=== PATIENT | female | born 1950 | race Caucasian/White ===

== ENCOUNTER 2018-10-30 11:46 | Emergency (ER) | payer BC, MEDICARE ==
[2018-10-30] MEDS ORDERED: Sodium Chloride 0.9% 10 ML Syringe FLUSH PRN (12:06)
[2018-10-30] MEDS ORDERED: Ondansetron 4 MG/2 ML SDV IVPUSH ONE (12:06)
--- NOTE | 2018-10-30 13:08 | EDM.PDOC ---
ED HPI GENERAL MEDICAL PROBLEM - General Chief Complaint: Head Injury Stated Complaint: HEAD INJURY Time Seen by Provider: 10/30/18 11:59 Source of Information: Reports: Patient, RN Notes Reviewed - History of Present Illness INITIAL COMMENTS - FREE TEXT/NARRATIVE: 68-year-old lady fell striking the back of her head hard against the pavement or cement driveway. She slipped on ice falling backwards. There was no LOC. She may have been dazed briefly. She does have severe headache, feels sleepy. Denies neck or back discomfort. There's been no nausea or vomiting. Her headache is worse with motion. She denies injury to her upper or lower extremities. No chest pain or difficulty breathing. Head Pain Score (Numeric/FACES): 7 - Related Data Allergies Allergy/AdvReac Type Severity Reaction Status Date / Time unknown depression med Allergy Hives Uncoded 10/30/18 11:53 Home Meds: Home Meds Aspirin [Ecotrin] 81 mg PO DAILY 10/30/18 [History] FLUoxetine HCl [Fluoxetine HCl] 20 mg PO DAILY 10/30/18 [History] Lisinopril 5 mg PO DAILY 10/30/18 [History] atorvaSTATin Calcium [Atorvastatin Calcium] 10 mg PO DAILY 10/30/18 [History] Past Medical History Other HEENT History: wears glasses Cardiovascular History: Reports: High Cholesterol, Hypertension Genitourinary History: Reports: Urinary Incontinence 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: - Past Surgical History HEENT Surgical History: Reports: Tonsillectomy GI Surgical History: Reports: Cholecystectomy Social & Family History - Tobacco Use Smoking Status *Q: Never Smoker - Caffeine Use Caffeine Use: Reports: Coffee - Recreational Drug Use Recreational Drug Use: No ED ROS GENERAL - Review of Systems Review Of Systems: See Below Constitutional: Denies: Diaphoresis HEENT: Denies: Ear Discharge, Ear Pain Respiratory: Denies: Shortness of Breath Cardiovascular: Denies: Chest Pain GI/Abdominal: Denies: Abdominal Pain, Nausea, Vomiting Musculoskeletal: Denies: Neck Pain, Shoulder Pain, Arm Pain, Back Pain, Leg Pain Skin: Reports: No Symptoms Neurological: Reports: Dizziness, Headache ED EXAM, HEAD INJURY - Physical Exam Exam: See Below General Appearance: Alert, Moderate Distress Head: Other (There is an area of swelling right posterior scalp). No: Facial Tenderness (No bony tenderness of the head or face) Eyes: Bilateral Eye: PERRL Ears: Normal External Exam Nose: Normal Inspection Throat/Mouth: Normal Inspection Neck: Non-Tender, Full Range of Motion Respiratory: No Respiratory Distress, Lungs Clear, Normal Breath Sounds Cardiovascular: Regular Rate, Rhythm GI/Abdominal Exam: Soft, Non-Tender Back Exam: No: Paraspinal Tenderness, Vertebral Tenderness Extremities: Normal Inspection, Normal Range of Motion Neurologic: No Motor/Sensory Deficits, Oriented x 3 Skin: Normal Color, Warm/Dry Course - Vital Signs Text/Narrative:: Apparent abnormality other than the swelling of right posterior scalp. Last Recorded V/S: Last Vital Signs Temp 97.4 F 10/30/18 11:55 Pulse 63 10/30/18 11:55 Resp 14 10/30/18 11:55 BP 164/76 H 10/30/18 11:55 Pulse Ox 96 10/30/18 11:55 - Orders/Labs/Meds Orders: Active Orders 24 hr Category Date Time Status Peripheral IV Care [RC] . DIRECTED Care 10/30/18 12:06 Active Head wo Cont [CT] Stat Exams 10/30/18 12:05 Taken Peripheral IV Insertion Adult [OM.PC] Stat Oth 10/30/18 12:06 Ordered Meds: Medications Discontinued Medications Generic Name Dose Route Start Last Admin Trade Name Freq PRN Reason Stop Dose Admin Ondansetron HCl 4 mg 10/30/18 12:06 10/30/18 12:18 Zofran IVPUSH 10/30/18 12:07 4 mg ONETIME ONE Administration Sodium Chloride 10 ml 10/30/18 12:06 10/30/18 12:18 Saline Flush FLUSH 10 ml ASDIRECTED PRN Administration Keep Vein Open - Re-Assessments/Exams Free Text/Narrative Re-Assessment/Exam: 10/30/18 13:25 CT of head is negative for acute abnormality her headache is much better, her dizziness is much better, she does feel up to going home at this time, discharge instructions as documented. Departure - Departure Time of Disposition: 13:26 Disposition: Home, Self-Care 01 Condition: Fair Clinical Impression: Concussion injury of brain Fall Qualifiers: Encounter type: initial encounter Qualified Code(s): W19.XXXA - Unspecified fall, initial encounter Scalp contusion Qualifiers: Encounter type: initial encounter Qualified Code(s): S00.03XA - Contusion of scalp, initial encounter - Discharge Information Instructions: Concussion, Adult, [id number], Facial or Scalp Contusion Referrals: Gauri Spencer NP [Primary Care Provider] - Forms: ED Department Discharge, ED Return to Work/School Form Additional Instructions: Rest, ice packs and elevation as needed for swelling, Tylenol every 6-8 hours as needed for headache. No work recommended today and tomorrow, the treatment for concussion is rest and time, gradually increase activity as you feel up to that. Follow-up with your regular clinic provider if not much better within 2- 3 days as expected, return to ED as needed if symptoms worsening in any way. - My Orders Last 24 Hours: My Active Orders 10/30/18 12:05 Head wo Cont [CT] Stat 10/30/18 12:06 Peripheral IV Care [RC] . DIRECTED Peripheral IV Insertion Adult [OM.PC] Stat - Assessment/Plan Last 24 Hours: My Active Orders 10/30/18 12:05 Head wo Cont [CT] Stat 10/30/18 12:06 Peripheral IV Care [RC] . DIRECTED Peripheral IV Insertion Adult [OM.PC] Stat
--- NOTE | 2018-10-31 17:00 | CT ---
Head CT Technique: Multiple axial sections through the brain were obtained. Intravenous contrast was not utilized. Comparison: No prior intracranial imaging. Findings: Ventricles along with basal cisterns and sulci over the convexities appear within normal limits for the patient's age. Scalp hematoma and soft tissue swelling are noted within the posterior right scalp. No abnormal parenchymal densities are seen. No evidence of intracranial hemorrhage. No midline shift or mass effect is seen. Bone window settings show no acute calvarial abnormality. Mild mucosal thickening is noted within the ethmoid sinuses. Impression: 1. Scalp hematoma and soft tissue swelling posteriorly on the right side. 2. Minimal sinus findings which are felt to be incidental. 3. No acute intracranial abnormality is identified. Diagnostic code #2 I agree with preliminary report from [facility], finalized on 10/30/18, 1:49 PM Central Time
== END 2018-10-30 13:40 | disposition home or self-care (01) ==
LOC: JD.ED 11:46
DX: S06.0X0A Concussion without loss of consciousness, initial encounter (principal); S00.03XA Contusion of scalp, initial encounter; I10 Essential (primary) hypertension; E78.00 Pure hypercholesterolemia, unspecified; Z88.8 Allergy status to other drugs, medicaments and biological substances; Z79.82 Long term (current) use of aspirin; Z79.899 Other long term (current) drug therapy; W19.XXXA Unspecified fall, initial encounter
CPT/HCPCS: 70450; 96374; 99284; J2405

== ENCOUNTER 2019-04-16 14:06 | Emergency (ER) | payer BC, MEDICARE ==
--- NOTE | 2019-04-16 16:49 | EDM.PDOC ---
ED HPI GENERAL MEDICAL PROBLEM - General Chief Complaint: Respiratory Problem Stated Complaint: LEGS SWOLLEN DIFFICULTY BREATHING Time Seen by Provider: 04/16/19 14:16 Source of Information: Reports: Patient History Limitations: Reports: No Limitations - History of Present Illness INITIAL COMMENTS - FREE TEXT/NARRATIVE: The patient presents with a cough, shortness of breath and heaviness in her chest. This all started a few days ago. She just returned from [place]. She felt warm but has no measurable fever. She has no chills. She has no headache. She is short of breath with and without exertion. She has swelling in her legs. She has no history of DVT or PE. She has no pain in her legs. She has no lung problems such as asthma or COPD. She does not smoke. She does not need to sleep sitting up. She has no history of CHF and no history of heart problems. She has no abdominal pain, nausea or vomiting. Onset: Gradual Duration: Day(s): Location: Reports: Chest Quality: Reports: Other (Tightness) Severity: Mild Improves with: Reports: None Worsens with: Reports: None Associated Symptoms: Reports: Cough, Fever/Chills, Shortness of Breath. Denies : Chest Pain, Headaches, Nausea/Vomiting - Related Data Allergies Allergy/AdvReac Type Severity Reaction Status Date / Time escitalopram [From Lexapro] Allergy Hives Verified 04/16/19 14:19 Home Meds: Home Meds FLUoxetine HCl [Fluoxetine HCl] 20 mg PO DAILY 10/30/18 [History] Lisinopril 5 mg PO DAILY 10/30/18 [History] atorvaSTATin Calcium [Atorvastatin Calcium] 10 mg PO DAILY 10/30/18 [History] Azithromycin [Zithromax] 250 mg PO DAILY #6 tab 04/16/19 [Rx] Furosemide [Lasix] 20 mg PO DAILY #7 tab 04/16/19 [Rx] Past Medical History Other HEENT History: wears glasses Cardiovascular History: Reports: High Cholesterol, Hypertension Genitourinary History: Reports: Urinary Incontinence 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: - Past Surgical History HEENT Surgical History: Reports: Tonsillectomy GI Surgical History: Reports: Cholecystectomy Social & Family History - Tobacco Use Smoking Status *Q: Never Smoker - Caffeine Use Caffeine Use: Reports: Coffee ED ROS GENERAL - Review of Systems Review Of Systems: See Below Constitutional: Reports: Fever HEENT: Reports: No Symptoms Respiratory: Reports: Shortness of Breath, Cough Cardiovascular: Reports: Chest Pain (Tightness) Endocrine: Reports: No Symptoms GI/Abdominal: Reports: No Symptoms : Reports: No Symptoms Musculoskeletal: Reports: No Symptoms Skin: Reports: No Symptoms ED EXAM, GENERAL - Physical Exam Exam: See Below Exam Limited By: No Limitations General Appearance: Alert, No Apparent Distress Ears: Normal External Exam Nose: Normal Inspection Head: Atraumatic, Normocephalic Neck: Normal Inspection Respiratory/Chest: No Respiratory Distress, Lungs Clear, Normal Breath Sounds Cardiovascular: Regular Rate, Rhythm, No Murmur, Other (Bilateral lower leg edema) GI/Abdominal: Soft, Non-Tender, No Organomegaly, No Mass Back Exam: Normal Inspection Extremities: Other (Bilateral lower leg edeam) Neurological: Alert, Oriented, No Motor/Sensory Deficits EKG INTERPRETATION EKG Date: 04/16/19 Time: 14:43 Rhythm: Other (sinus bradycardia) Rate (Beats/Min): 56 [place]: Normal P-Wave: Present QRS: Normal ST-T: Other (flipped T wave in V1) QT: Normal Course - Vital Signs Last Recorded V/S: Last Vital Signs Temp 98.0 F 04/16/19 14:20 Pulse 57 L 04/16/19 14:20 Resp 18 04/16/19 14:20 BP 152/73 H 04/16/19 14:20 Pulse Ox 94 L 04/16/19 14:20 - Orders/Labs/Meds Orders: Active Orders 24 hr Category Date Time Status Cardiac Monitoring [RC] . DIRECTED Care 04/16/19 14:39 Active EKG Documentation Completion [RC] STAT Care 04/16/19 14:39 Active Ang Chest [CT] Stat Exams 04/16/19 15:59 Taken Chest 2V [CR] Stat Exams 04/16/19 14:39 Taken Labs: Laboratory Tests 04/16/19 04/16/19 04/16/19 Range/Units 14:30 14:30 14:30 WBC 4.79 (3.98-10.04) K/mm3 RBC 3.71 L (3.98-5.22) M/mm3 Hgb 11.2 D (11.2-15.7) gm/L Hct 35.0 (34.1-44.9) % MCV 94.3 (79.4-94.8) fl MCH 30.2 (25.6-32.2) pg MCHC 32.0 L (32.2-35.5) g/dl RDW Std Deviation 47.5 H (36.4-46.3) fL Plt Count 243 (182-369) K/mm3 MPV 10.0 (9.4-12.3) fl Neut % (Auto) 54.9 (34.0-71.1) % Lymph % (Auto) 23.4 (19.3-51.7) % [place] % (Auto) 19.2 H (4.7-12.5) % Eos % (Auto) 1.9 (0.7-5.8) Baso % (Auto) 0.4 (0.1-1.2) % Neut # (Auto) 2.63 (1.56-6.13) K/mm3 Lymph # (Auto) 1.12 L (1.18-3.74) K/mm3 [place] # (Auto) 0.92 H (0.24-0.36) K/mm3 Eos # (Auto) 0.09 (0.04-0.36) K/mm3 Baso # (Auto) 0.02 (0.01-0.08) K/mm3 Manual Slide Review Normal smear D-Dimer, Quantitative 0.79 H (0.19-0.50) mg/L Sodium 136 (136-145) mEq/L Potassium 3.7 (3.5-5.1) mEq/L Chloride 104 (98-107) mEq/L Carbon Dioxide 24 (21-32) mEq/L Anion Gap 11.7 (5-15) BUN 13 (7-18) mg/dL Creatinine 0.8 (0.55-1.02) mg/dL Est Cr Clr Drug Dosing 58.93 mL/min Estimated GFR (MDRD) > 60 (>60) mL/min BUN/Creatinine Ratio 16.3 (14-18) Glucose 98 (80-115) mg/dL Calcium 8.9 (8.5-10.1) mg/dL Total Bilirubin 0.3 (0.2-1.0) mg/dL AST 48 H (15-37) U/L ALT 57 (14-59) U/L Alkaline Phosphatase 69 (46-116) U/L Troponin I < 0.017 (0.00-0.056) ng/mL NT-Pro-B Natriuret Pep (0-125) pg/mL Total Protein 8.3 H (6.4-8.2) g/dl Albumin 3.0 L (3.4-5.0) g/dl Globulin 5.3 gm/dL Albumin/Globulin Ratio 0.6 L (1-2) 04/16/19 Range/Units 14:30 WBC (3.98-10.04) K/mm3 RBC (3.98-5.22) M/mm3 Hgb (11.2-15.7) gm/L Hct (34.1-44.9) % MCV (79.4-94.8) fl MCH (25.6-32.2) pg MCHC (32.2-35.5) g/dl RDW Std Deviation (36.4-46.3) fL Plt Count (182-369) K/mm3 MPV (9.4-12.3) fl Neut % (Auto) (34.0-71.1) % Lymph % (Auto) (19.3-51.7) % [place] % (Auto) (4.7-12.5) % Eos % (Auto) (0.7-5.8) Baso % (Auto) (0.1-1.2) % Neut # (Auto) (1.56-6.13) K/mm3 Lymph # (Auto) (1.18-3.74) K/mm3 [place] # (Auto) (0.24-0.36) K/mm3 Eos # (Auto) (0.04-0.36) K/mm3 Baso # (Auto) (0.01-0.08) K/mm3 Manual Slide Review D-Dimer, Quantitative (0.19-0.50) mg/L Sodium (136-145) mEq/L Potassium (3.5-5.1) mEq/L Chloride (98-107) mEq/L Carbon Dioxide (21-32) mEq/L Anion Gap (5-15) BUN (7-18) mg/dL Creatinine (0.55-1.02) mg/dL Est Cr Clr Drug Dosing mL/min Estimated GFR (MDRD) (>60) mL/min BUN/Creatinine Ratio (14-18) Glucose (80-115) mg/dL Calcium (8.5-10.1) mg/dL Total Bilirubin (0.2-1.0) mg/dL AST (15-37) U/L ALT (14-59) U/L Alkaline Phosphatase (46-116) U/L Troponin I (0.00-0.056) ng/mL NT-Pro-B Natriuret Pep 286 H (0-125) pg/mL Total Protein (6.4-8.2) g/dl Albumin (3.4-5.0) g/dl Globulin gm/dL Albumin/Globulin Ratio (1-2) - Re-Assessments/Exams Free Text/Narrative Re-Assessment/Exam: 04/16/19 16:51 I ordered an IV saline lock, EKG, CXR and labs. Her EKG shows a sinus bradycardia with a flipped T wave in V1. Her CXR shows no infiltrates. 04/16/19 16:53 Her CBC was negative. Her AST was slightly elevated at 48. Her troponin was negative. Her BNP was slightly elevated at 286. Her D-dimer was elevated at 0.79. I ordered a CT angio of her chest. 04/16/19 17:[address] of her chest showed no PE but pattern of cardiogenic interstitial pulmonary edema. I will get her on lasix for a week and get an echocardiogram. I will also get her on a z-garry. Departure - Departure Time of Disposition: 17:15 Disposition: Home, Self-Care 01 Condition: Good Clinical Impression: Bronchitis Pulmonary edema Qualifiers: Chronicity: acute Qualified Code(s): J81.0 - Acute pulmonary edema - Discharge Information *PRESCRIPTION DRUG MONITORING PROGRAM REVIEWED*: Not Applicable *COPY OF PRESCRIPTION DRUG MONITORING REPORT IN PATIENT JULIETH: Not Applicable Prescriptions: Azithromycin [Zithromax] 250 mg PO DAILY #6 tab Furosemide [Lasix] 20 mg PO DAILY #7 tab Referrals: Gauri Spencer NP [Primary Care Provider] - 1 Week Forms: ED Department Discharge Additional Instructions: Take the lasix daily for 1 week. Take the zithromax 2 pills on day 1 and 1 pill on day 2 through 5. Use cough medicine as needed for your cough such as robitussin DM. Please return if you are worse. - My Orders Last 24 Hours: My Active Orders 04/16/19 14:39 Cardiac Monitoring [RC] . DIRECTED EKG Documentation Completion [RC] STAT Chest 2V [CR] Stat 04/16/19 15:59 Ang Chest [CT] Stat - Assessment/Plan Last 24 Hours: My Active Orders 04/16/19 14:39 Cardiac Monitoring [RC] . DIRECTED EKG Documentation Completion [RC] STAT Chest 2V [CR] Stat 04/16/19 15:59 Ang Chest [CT] Stat
--- NOTE | 2019-04-18 09:07 | CR ---
Chest: Two views of the chest were obtained. Comparison: No prior chest imaging. Heart is mildly enlarged. Pulmonary vessels felt to be slightly congested. Lungs otherwise are clear without acute parenchymal change. Scattered degenerative change is noted within the spine. Mild anterior wedge deformity is noted within the mid to lower thoracic spine which is most likely old. Impression: 1. Cardiomegaly and mild pulmonary vascular congestion. 2. Other incidental findings. Diagnostic code #3
--- NOTE | 2019-04-18 09:07 | CT ---
CT chest Technique: Multiple axial sections through the chest were obtained. Intravenous contrast was utilized. Study has been performed as a pulmonary angiogram protocol. Findings: Pulmonary arteries are well-opacified and show no filling defects of pulmonary embolism. Mediastinum and hilar regions contain small lymph nodes which are believed to be within normal limits. Heart is enlarged. Very minimal bilateral pleural effusions are present. Mild haziness around the pulmonary vessels is seen likely representing slight pulmonary vascular congestion. No acute parenchymal change is otherwise seen. Impression: 1. No evidence of pulmonary embolism. 2. Minimal pleural effusions and probable mild pulmonary vascular congestion. Diagnostic code #3
== END 2019-04-16 17:32 | disposition home or self-care (01) ==
LOC: JD.ED 14:06
DX: J40 Bronchitis, not specified as acute or chronic (principal); J81.0 Acute pulmonary edema; E78.00 Pure hypercholesterolemia, unspecified; I10 Essential (primary) hypertension; Z88.8 Allergy status to other drugs, medicaments and biological substances; Z79.899 Other long term (current) drug therapy
CPT/HCPCS: 36415; 71046; 71046-26; 71275; 71275-26; 80053; 83880; 84484; 85025; 85379; 93005; 93010; 99284; 99285-25

== ENCOUNTER 2022-06-09 07:14 | Day surgery (SDC) | payer MEDICARE ==
[2022-06-09] MEDS: Lactated Ringers 1,000 ML IV SCH ×2 (07:00→14:25)
[~2022-06-09 07:14] MED LIST: Acetaminophen 325 MG Tab PO SCH; Lidocaine 1% 4 ML ONE; Lidocaine 1%/Sod Bicarbonate in NS 8.4% 1 ML Syringe IDERM PRN; Midazolam 1 MG/ML 2 ML SDV ONE; Morphine 8 MG, EPINEPHrine 0.3 MG, Cefuroxime 750 MG, Ketorolac 30 MG, Sodium Chloride ... PRN; Pregabalin 25 MG Cap PO SCH; Propofol 200 MG/20 ML SDV ONE; Ropivacaine 0.5% 5 MG/ML 30 ML SDV ONE; Sodium Chloride 0.9% 10 ML Syringe FLUSH PRN; Sodium Chloride 0.9% 10 ML Syringe FLUSH SCH; Vancomycin 1 GM SDV ONE; ceFAZolin 2 GM Vial ONE; fentaNYL 100 MCG/2 ML SDV ONE; oxyCODONE ER 10 MG TAB.ER PO SCH
[2022-06-09] MEDS ORDERED: EPINEPHrine 1 MG/ML SDV ONE (07:15)
[2022-06-09] MEDS ORDERED: Lactated Ringers 1,000 ML ONE (08:48)
[2022-06-09] MEDS ORDERED: ePHEDrine 50 MG/ML SDV ONE (08:56)
[2022-06-09] MEDS ORDERED: Ondansetron 4 MG/2 ML SDV IVPUSH PRN (09:13)
[2022-06-09] MEDS ORDERED: diphenhydrAMINE 50 MG/ML SDV IVPUSH PRN (09:13)
[2022-06-09] MEDS ORDERED: fentaNYL 100 MCG/2 ML SDV IVPUSH PRN (09:13)
[2022-06-09] MEDS ORDERED: Ondansetron 4 MG/2 ML SDV ONE (09:40)
[2022-06-09] MEDS ORDERED: Ketorolac 30 MG/ML SDV ONE (09:40)
[2022-06-09] MEDS ORDERED: oxyCODONE 5 MG Tab PO PRN (12:39)
== END 2022-06-09 15:45 | disposition home or self-care (01) ==
LOC: JD.SDS 07:14
PROVIDERS: ATTEND Orthopaedic Surgery
DX: M17.12 Unilateral primary osteoarthritis, left knee (principal); I10 Essential (primary) hypertension; R73.03 Prediabetes; T14.8XXA Other injury of unspecified body region, initial encounter; F41.9 Anxiety disorder, unspecified; F32.A Depression, unspecified; E78.5 Hyperlipidemia, unspecified; Z79.899 Other long term (current) drug therapy; Z90.49 Acquired absence of other specified parts of digestive tract; Z98.890 Other specified postprocedural states
CPT/HCPCS: 0055T; 27447; 73560; 97110; 97116; 97161; A9270; C1713; C1776; J0171; J0690; J0697; J1885; J2250; J2270; J2405; J2704; J2795; J3010; J3370; J7120; 01402; 64450; 76942; 99100

== ENCOUNTER 2024-10-07 16:27 | Emergency (ER) | payer MEDICARE | END 2024-10-07 17:45 | disposition critical access hospital (66) | LOC: JD.ED 16:27 | DX: R22.32 Localized swelling, mass and lump, left upper limb (principal); L98.9 Disorder of the skin and subcutaneous tissue, unspecified; I10 Essential (primary) hypertension; E78.00 Pure hypercholesterolemia, unspecified; Z86.73 Personal history of transient ischemic attack (TIA), and cerebral infarction without residual deficits; Z90.49 Acquired absence of other specified parts of digestive tract; Z90.710 Acquired absence of both cervix and uterus; Z88.8 Allergy status to other drugs, medicaments and biological substances; Z79.899 Other long term (current) drug therapy | CPT/HCPCS: 99284 ==

== ENCOUNTER 2025-02-08 16:33 | Emergency (ER) | payer MEDICARE ==
[2025-02-08 18:10] LABS: APPEARANCE,URINE CLEAR (Clear); BILIRUBIN,URINE NEGATIVE (Negative); COLOR,URINE YELLOW (Yellow); GLUCOSE,URINE NEGATIVE (Negative); KETONES,URINE NEGATIVE (Negative); LEUKOCYTE ESTERASE,URINE TRACE (Negative); NITRITE,URINE NEGATIVE (Negative); OCCULT BLOOD,URINE NEGATIVE (Negative); PH,URINE 6.5 (5.0-8.0); PROTEIN,URINE NEGATIVE (Negative); UROBILINOGEN,URINE 0.2 (0.2-1.0)
[2025-02-08 18:37] LABS: A/G RATIO 0.4 (1-2); ANION GAP 7.3 (5-15); EST CRCL DRUG DOSING (CG) 41.45 mL/min; POTASSIUM,K 3.3 mEq/L (3.5-5.1)
[2025-02-08 18:38] LABS: BASOPHILS PERCENT AUTO 0.6 % (0.0-1.0); EOSINOPHILS ABSOLUTE AUTO 0.1 K/mm3 (0.0-0.4); EOSINOPHILS PERCENT AUTO 2.8 % (0.0-6.0); HEMATOCRIT 29.8 % (37.0-47.0); LYMPHOCYTES PERCENT AUTO 28.2 % (24.0-44.0); MEAN CORPUSCULAR HEMOGLOBIN 28.8 pg (28.0-32.0); MEAN CORPUSCULAR HGB CONC 30.2 g/dl (32.0-36.0); MEAN CORPUSCULAR VOLUME 95.2 fl (83.0-99.0); MEAN PLATELET VOLUME 9.5 fl (9.4-12.3); MONOCYTES ABSOLUTE AUTO 0.8 K/mm3 (0.0-0.8); MONOCYTES PERCENT AUTO 23.7 % (0.0-8.0); NEUTROPHILS ABSOLUTE AUTO 1.6 K/mm3 (1.8-7.7); NEUTROPHILS PERCENT AUTO 44.7 % (41.0-71.0); PLATELET COUNT,PLT 289 K/mm3 (150-400); RED BLOOD CELL COUNT 3.13 M/mm3 (4.10-5.30); WHITE BLOOD CELL COUNT,WBC 3.54 K/mm3 (3.9-11.3)
[2025-02-08 18:40] LABS: BILIRUBIN TOTAL 0.2 mg/dL (0.2-1.0); PROTEIN TOTAL,TP 9.5 g/dl (6.4-8.2)
[2025-02-08 18:41] LABS: ALBUMIN 2.6 g/dl (3.4-5.0); CALCIUM 8.6 mg/dL (8.5-10.1)
[2025-02-08 19:19] LABS: BACTERIA,URINE FEW /hpf (FEW); MUCUS,URINE FEW /hpf (FEW); RBC,URINE 0-5 /hpf (0-5); SQUAMOUS EPITHELIAL CELLS,UR 0-5 /hpf (0-5); WBC,URINE 0-5 /hpf (0-5)
[2025-02-08] MEDS: Potassium Chloride 20 MEQ Tab.ER PO ONE (20:00)
== END 2025-02-08 20:08 | disposition home or self-care (01) ==
LOC: JD.ED 16:33
DX: R53.1 Weakness (principal); I10 Essential (primary) hypertension; E78.00 Pure hypercholesterolemia, unspecified; Z90.49 Acquired absence of other specified parts of digestive tract; Z90.710 Acquired absence of both cervix and uterus; Z79.899 Other long term (current) drug therapy; Z79.82 Long term (current) use of aspirin; Z88.8 Allergy status to other drugs, medicaments and biological substances
CPT/HCPCS: 36415; 80053; 81001; 83735; 85025; 87086; 93005; 99285; A9270